=== PATIENT | male | born 1980 | race Hispanic/Latino ===

== ENCOUNTER 2016-06-18 02:21 | Emergency (ER) | payer OTHER ==
[2016-06-18 02:40] VITALS: BP 112/68
--- NOTE | 2016-06-18 05:20 | Emergency Department Report ---
HPI - General Chief Complaint: Back Pain/Injury Time Seen by Provider: 06/18/16 05:17 - HPI HPI: Patient here reports that he has injured his lower back today at work after reaching for something. He said he was having pain 5 out of 10 but his pain is better now. Denies any fall or trauma. He said he was reaching for something and he thinks he pulled a muscle. Denies any numbness or tingling to extremities. Sent is pain-free at present. Denies urinary burning frequency or urgency. Denies abdominal pain ED Past Medical Hx - Past Medical History Previous Medical History?: Yes Hx Psychiatric Treatment: Yes (bipolar depression) - Surgical History Past Surgical History?: Yes Additional Surgical History: abd. foot, nasal, finger,and testicle sx - Family History Family history: no significant - Social History Smoking Status: Never Smoker Substance Use Type: None - Medications Home Medications: Home Medications Medication Instructions Recorded Confirmed Last Taken Type Cyclobenzaprine [Flexeril] 10 mg PO TID PRN #15 tablet 06/18/16 Unknown Rx ED Review of Systems ROS: Stated complaint: BACK PAIN Other details as noted in HPI Comment: All other systems reviewed and negative Constitutional: denies: chills, fever Respiratory: no symptoms reported Cardiovascular: denies: chest pain, palpitations, edema, syncope Gastrointestinal: denies: abdominal pain, nausea, vomiting Genitourinary: denies: urgency, dysuria, frequency, hematuria Musculoskeletal: back pain. denies: joint swelling, arthralgia Skin: denies: rash Neurological: denies: headache, weakness, numbness, paresthesias, abnormal gait , vertigo Physical Exam - Physical Exam Vital Signs: Vital Signs 06/18/16 06/18/16 02:27 02:33 Temperature 97.8 F 97.8 F Pulse Rate 60 60 Respiratory 18 20 Rate Blood Pressure 112/68 Blood Pressure 112/64 [Right] O2 Sat by Pulse 98 98 Oximetry General: This is a 36-year-old male well-nourished well-developed in no acute distress Physical Exam: Head: Normocephalic atraumatic Mouth: Moist, no pharyngeal exudate or erythema. Uvula is midline and oral airway is patent. No gingival enlargement or dental tenderness. No facial swelling. No peritonsillar abscesses. Neck: Supple, no C-spine tenderness, no tracheal deviation. Nontender to palpate. no adenopathy Eyes: Bilateral pupils equal and reactive to light, bilateral EOM intact. Bilateral sclera and conjunctiva without injection. Normal accommodation Back: Negative SLR bilaterally, no vertebral or paraspinal tenderness. Patient able to ambulate without any difficulties. No saddle anesthesia. No spasms Neurologic: GCS at 15, alert and oriented 3, speech is normal and fluid. Negative pronator drift. Normal reflexes. No Facial drooping. 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 No motor or sensory deficit. Abdomen: Nontender to palpate in all quadrants, normal bowel sounds. No guarding or rebound tenderness. Negative CVA tenderness Lungs: Clear to auscultate bilaterally no rhonchi wheezes or rales. Normal work of breathing extremity; No CCE. +2 pulses. No neurovascular compromise Cardiovascular: S1-S2, regular rate rhythm. No murmurs. Skin: clean Dry and intact no rash no lesions Psych: Normal mood and behavior ED Course Vital Signs 06/18/16 06/18/16 02:27 02:33 Temperature 97.8 F 97.8 F Pulse Rate 60 60 Respiratory 18 20 Rate Blood Pressure 112/68 Blood Pressure 112/64 [Right] O2 Sat by Pulse 98 98 Oximetry - Reevaluation(s) Reevaluation #1: 06/18/16 05:41 Patient presented to emergency room with lower back pain. Up in assessment, patient says his back pain is better. ED Medical Decision Making - Medical Decision Making ED course: Patient with lower back strain. Patient reports that he was at work and thinks that he pulled a muscle in his lower back. Upon examination, he said he was not having any pain. Patient discharged home with prescription for Flexeril and to follow-up with orthopedic moist primary care physician if back pain with returns. He states understanding of discharge instructions. Critical care attestation.: If time is entered above; I have spent that time in minutes in the direct care of this critically ill patient, excluding procedure time. ED Disposition Clinical Impression: Lumbar strain Qualifiers: Encounter type: initial encounter Qualified Code(s): S39.012A - Strain of muscle, fascia and tendon of lower back, initial encounter Disposition: DISCHARGED TO HOME OR SELFCARE Is pt being admited?: No Does the pt Need Aspirin: No Condition: Stable Instructions: Low Back Strain (ED) Prescriptions: Cyclobenzaprine [Flexeril] 10 mg PO TID PRN #15 tablet PRN Reason: Muscle Spasm Referrals: PRIMARY CARE, [Primary Care Provider] - 2-3 Days CAS RECINOS MD [Staff Physician] - 2-3 Days Forms: Work/School Release Form(ED)
== END 2016-06-18 05:56 | disposition home or self-care (01) ==
LOC: ED 02:21
DX: S39.012A Strain of muscle, fascia and tendon of lower back, initial encounter (principal); F31.9 Bipolar disorder, unspecified; X58.XXXA Exposure to other specified factors, initial encounter; Y93.89 Activity, other specified; Y99.9 Unspecified external cause status; Y92.89 Other specified places as the place of occurrence of the external cause
CPT/HCPCS: 99282